=== PATIENT | female | born 1985 | race Caucasian/White ===

== ENCOUNTER 2018-08-28 19:06 | Emergency (ER) | payer MEDICAID ==
[~2018-08-28] VITALS: Ht 149.9 cm; Wt 56.2 kg
[~2018-08-28 19:06] MED LIST: NITR-58 PO
[2018-08-28 19:09] VITALS: Ht 149.9 cm; Wt 56.2 kg
[2018-08-28] MEDS ORDERED: ONDANSETRON 4 MG INJ IV STA (21:34)
[2018-08-28] MEDS ORDERED: SOD CHLORIDE 0.9% 1,000 ML IV STA (21:34)
[2018-08-28] MEDS ORDERED: DOXY1TAB3 PO (22:38)
[2018-08-28 22:45] VITALS: BP 120/65; PULSE 90; RESP 18
--- NOTE | 2018-08-29 01:58 | ERD ---
ER Documentation Chief Complaint Chief Complaint REFFERED BY OB DUE TO PT HAVING KETONES IN URINE? & VOMITING HPI 33-year-old female who is reportedly 10 weeks , Ab2 presenting with complains of intermittent vomiting for the past 2 days. Patient currently has nausea. Patient denies vomiting today. Patient has had decreased appetite overall. She has history of similar symptoms in the past with her other pregnancies. She denies any pelvic pain, vaginal bleeding, vaginal discharge, or other symptoms at this time. Symptoms are overall mild in severity. ROS All systems reviewed and are negative except as per history of present illness. Medications Home Meds Active Scripts Doxylamine/Pyridoxine Hcl (DICLEGIS DR 10-10 MG TABLET) 1 Each Tablet.dr, 1 TAB PO QHS PRN for NAUSEA, #10 TAB Prov:CHRISTIAN AGUSTIN PA-C 08/28/18 Nitrofurantoin Monohyd Macrocr* (Macrobid*) 100 Mg Capsr, 100 MG PO BID for 5 Days, #10 CAP Prov:Tasha Sparks PA-C 06/01/16 Allergies Allergies: Coded Allergies: No Known Allergy (Unverified , 06/08/16) PMhx/Soc Medical and Surgical Hx: pt denies Medical Hx, pt denies Surgical Hx History of Surgery: No Anesthesia Reaction: No Hx Neurological Disorder: No Hx Respiratory Disorders: No Hx Cardiac Disorders: No Hx Psychiatric Problems: No Hx Miscellaneous Medical Probl: No Hx Alcohol Use: No Hx Substance Use: No Hx Tobacco Use: No Smoking Status: Never smoker FmHx Family History: No diabetes Physical Exam Vitals Vital Signs Date Temp Pulse Resp B/P (MAP) Pulse Ox O2 O2 Flow FiO2 Time Delivery Rate 08/28/18 98.1 90 18 120/65 100 Room Air 22:45 (83) 08/28/18 98.2 74 19 131/83 100 19:09 (99) Physical Exam Const: No acute distress Head: Atraumatic Eyes: Normal Conjunctiva ENT: Normal External Ears, Nose and Mouth. Neck: Full range of motion. No meningismus. Resp: Clear to auscultation bilaterally Cardio: Regular rate and rhythm, no murmurs Abd: Soft, non tender, non distended. Normal bowel sounds. No suprapubic tenderness palpation. No rebound tenderness or guarding. No McBurney's point tenderness. Skin: No petechiae or rashes Ext: No cyanosis, or edema Neur: Awake and alert Psych: Normal Mood and Affect Result Diagram: 08/28/18215508/28/182155 Results 24 hrs Laboratory Tests Test 08/28/18 21:56 White Blood Count 9.0 10^3/ul Red Blood Count 3.98 10^6/ul Hemoglobin 12.0 g/dl Hematocrit 36.2 % Mean Corpuscular Volume 91.0 fl Mean Corpuscular Hemoglobin 30.2 pg Mean Corpuscular Hemoglobin Concent 33.1 g/dl Red Cell Distribution Width 12.6 % Platelet Count 287 10^3/UL Mean Platelet Volume 10.1 fl Immature Granulocytes % 0.300 % Neutrophils % 65.2 % Lymphocytes % 27.0 % Monocytes % 6.2 % Eosinophils % 0.9 % Basophils % 0.4 % Nucleated Red Blood Cells % 0.0 /100WBC Immature Granulocytes # 0.030 10^3/ul Neutrophils # 5.9 10^3/ul Lymphocytes # 2.4 10^3/ul Monocytes # 0.6 10^3/ul Eosinophils # 0.1 10^3/ul Basophils # 0.0 10^3/ul Nucleated Red Blood Cells # 0.0 10^3/ul Sodium Level 139 mmol/L Potassium Level 3.7 mmol/L Chloride Level 105 mmol/L Carbon Dioxide Level 25 mmol/L Anion Gap 9 Blood Urea Nitrogen 7 mg/dl Creatinine 0.47 mg/dl Est Glomerular Filtrat Rate mL/min > 60 mL/min Glucose Level 87 mg/dl Calcium Level 9.4 mg/dl Total Bilirubin 0.2 mg/dl Direct Bilirubin 0.00 mg/dl Indirect Bilirubin 0.2 mg/dl Aspartate Amino Transf (AST/SGOT) 15 IU/L Alanine Aminotransferase (ALT/SGPT) 9 IU/L Alkaline Phosphatase 70 IU/L Total Protein 7.6 g/dl Albumin 4.1 g/dl Globulin 3.50 g/dl Albumin/Globulin Ratio 1.17 Current Medications Medications Dose Sig/Kiera Start Time Status Last (Trade) Ordered Route PRN Stop Time Admin Dose Reason Admin Sodium 1,000 ml @ Q1H STAT 08/28/18 DC 08/28/18 Chloride 1,000 mls/hr IV 21:34 08/28/18 21:49 22:33 Ondansetron 4 mg ONCE STAT 08/28/18 DC 08/28/18 HCl (Zofran IV 21:34 08/28/18 21:51 Inj) 21:36 Procedures/MDM 33-year-old female presenting to the emergency department with signs and symptoms most consistent with hyperemesis gravidarum. Low suspicion for ectopic , tubo-ovarian abscess, acute abdomen, sepsis, or other emergencies. Patient was improved significantly after treatment in the department with IV fluids and IV Zofran. She was otherwise stable for discharge and further follow-up with her primary care physician. She agreed with the diagnosis, plan, need for follow-up, return precautions. CBC: no e/o of systemic infection or severe anemia CMP: no e/o severe acidosis, alkalosis, renal failure, diabetic ketoacidosis, liver disease Lipase: no e/o pancreatitis PT/INR: normal coagulation Departure Diagnosis: Primary Impression: Hyperemesis gravidarum Condition: Fair Patient Instructions: Hyperemesis Gravidarum (Severe Morning Sickness) Referrals: [facility] Usted se pickett hecho un examen mdico de control que le indica que no est en mer condicin que requiera tratamiento urgente en el Departamento de Emergencia. Un estudio ms profundo y el tratamiento de mcconnell condicin pueden esperar sin ningn riesgo hasta que usted sea atendida/o en el consultorio de mcconnell mdico o mer clnica. Es responsabilidad suya arreglar mer karena para el seguimiento del kristen. MANEJO DE CONDICIONES NO URGENTES EN EL FUTURO 1) Si usted tiene un mdico de atencin primaria: Usted debera llamar a mcconnell mdico de atencin primaria antes de venir al departamento de emergencia. Despus de las horas de consultorio, mcconnell doctor o mcconnell asociado/a est disponible por telfono. El mdico o enfermero de marcos en el servicio telefnico puede asesorarle por jakob medio para atender el problema, o kristen contrario se puede programar mer karena. 2) Si usted no tiene un mdico de atencin primaria: Llame al mdico o clnica de referencia que aparece abajo estrella las horas de consultorio para hacer mer karena para que le vean. CLINICAS: [place] [phone] [facility] [phone] [facility] [phone] [facility] [phone] [place] [address] [phone] [place] [phone] [employer] [place] [address] [facility] [address] [facility] [place] [phone] OFFICE FAX , [facility] [address] [place], [place] [phone] [facility] [address] [place] [address] [address] HUSAIN [facility] [address] [facility], [facility] [address] [address] [address] [place] [address] [facility] [address] [place] [address] [facility] [place] [address] - [address] [place] [address] [address] BEDOLLA, [facility] [address] [facility] [address], [place] [address] [address] [address] [place] [address] Additional Instructions: Llame al doctor MAANA y tim mer KARENA PARA DENTRO DE 1-2 SCHNEIDER.Dgale a la secr etaria que nosotros le instruimos hacer esta karena.Avise o llame si mcconnell condicin se empeora antes de la karena. Regresa aqui si peor o no mejor. CHRISTIAN AGUSTIN PA-C Aug 29, 2018 01:58
== END 2018-08-28 22:48 | disposition home or self-care (01) ==
LOC: FTE 19:06
DX: O21.0 Mild hyperemesis gravidarum (principal); Z3A.10 10 weeks gestation of pregnancy
CPT/HCPCS: 36415; 80053; 85025; 96374; J2405; J7030; Z7502

== ENCOUNTER 2019-02-22 11:14 | Inpatient (IN) | payer MEDICAID ==
[~2019-02-22] VITALS: Ht 142.2 cm; Wt 63.6 kg
[~2019-02-22 11:14] MED LIST changes: +DOXY1TAB3 PO
[2019-02-22 11:38] VITALS: Ht 142.2 cm; Wt 63.6 kg
[2019-02-22] MEDS ORDERED: LIDOCAINE 1% (MPF) 30 ML INJ INJ PRN (12:00)
[2019-02-22] MEDS ORDERED: MISOPROSTOL 200 MCG TAB PR PRN (12:00)
[2019-02-22] MEDS ORDERED: METHYLERGONOVINE 0.2 MG INJ IM PRN (12:00)
[2019-02-22] MEDS ORDERED: CARBOPROST 250 MCG INJ IM PRN (12:00)
[2019-02-22] MEDS ORDERED: OXYTOCIN 30 UNITS/LR 500 ML IV PRN (12:00)
[2019-02-22] MEDS ORDERED: OXYTOCIN 30 UNITS/LR 500 ML IV SCH ×3 (12:00→12:30)
[2019-02-22] MEDS ORDERED: IBUPROFEN 600 MG TAB PO PRN (12:00)
[2019-02-22] MEDS ORDERED: BUTORPHANOL 2 MG INJ IV PRN (12:00)
[2019-02-22] MEDS: LACTATED RINGER'S 1,000 ML IV SCH ×2 (12:08→15:59)
[2019-02-22] MEDS ORDERED: AMPICILLIN 2 GM/NS (PMX) 100 ML IV ONE (12:30)
[2019-02-22] MEDS ORDERED: MISOPROSTOL 50 MCG CAPSULE VAG ONE (12:30)
[2019-02-22] MEDS ORDERED: hydrALAzine 20 MG INJ IV PRN (18:30)
[2019-02-22] MEDS ORDERED: LABETALOL HCL 20MG INJ IV ONE (18:30)
[2019-02-22] MEDS ORDERED: LABETALOL HCL 20MG INJ IV PRN ×2 (18:30)
[2019-02-22] MEDS: AMPICILLIN 1 GM/NS (PMX) 50 ML IV SCH (19:36)
[2019-02-22] MEDS: MISOPROSTOL 50 MCG CAPSULE PO SCH (20:00)
[2019-02-23] MEDS: AMPICILLIN 1 GM/NS (PMX) 50 ML IV SCH ×6 (00:10→20:02)
[2019-02-23] MEDS: MISOPROSTOL 50 MCG CAPSULE PO SCH ×4 (02:26→20:16)
[2019-02-23] MEDS: LACTATED RINGER'S 1,000 ML IV SCH ×2 (04:04→16:11)
--- NOTE | 2019-02-23 17:22 | HP ---
Date/Time of Note Date/Time of Note DATE: 02/23/19 TIME: 17:19 OB - History Hx of Present Free Text/Dictation 33-year-old 5 para 3 with at 37 weeks and 2 days with due date March 14, 2019. She was seen at outpatient diagnostic center yesterday for NST and showed hyper blood pressure. Dr. Paniagua perinatologist recommended induction of labor. She was started on Cytotec induction of labor. NST is reassuring. Care: Good Care Ultrasounds: No ultrasounds Obstetrical Complications: Gestational Hypertension Medical Complications: None Past Family/Social History * Past Medical, Surgical, Family and Obstetric Histories reviewed from chart. OB Admission Exam Physical Exam HEENT: WNL Heart: Rhythm Normal Lungs: Clear, Equal Abdomen: WNL Extremities: Normal Reflexes: Normal Cervical Dilatation: None Last 72 hours Lab Results CBC & BMP 02/22/19 11:48 02/22/19 12:11 Liver Function Test 02/22/19 11:48 Alanine Aminotransferase (ALT/SGPT) 19 Albumin 3.2 L Alkaline Phosphatase 264 H Aspartate Amino Transf (AST/SGOT) 23 Direct Bilirubin 0.00 Total Protein 6.4 OB Assessment/Plan Other Assessment: Regnancy at 37 weeks and 3 days Gestational hypertension Induction Method: per Misoprostol Protocol SPENSER KIM MD Feb 23, 2019 17:22
[2019-02-23] MEDS ORDERED: LABETALOL HCL 20MG INJ IV ONE (19:35)
[2019-02-24] MEDS: AMPICILLIN 1 GM/NS (PMX) 50 ML IV SCH ×4 (00:01→12:06)
[2019-02-24] MEDS: MISOPROSTOL 50 MCG CAPSULE PO SCH (00:16)
[2019-02-24] MEDS: LACTATED RINGER'S 1,000 ML IV SCH ×3 (03:07→13:28)
[2019-02-24] MEDS ORDERED: LACTATED RINGER'S 1,000 ML IV PRN (06:00)
--- NOTE | 2019-02-24 06:26 | PREAC ---
Date/Time of Note Date/Time of Note DATE: 02/24/19 TIME: 06:23 Anesthesia Eval and Record Evaluation Time Pre-Procedure Interview DATE: 02/24/19 TIME: 06:23 Age 33 Sex female NPO: 8 hrs Preoperative diagnosis IUP Planned procedure L&D Epidural Past Medical History Past Medical History: Includes Cardio: HTN GI: Obesity : : Surgery & Anesthesia Issues No known issue Meds Anticoagulation: No Beta Leonard within 24 hr: No Reason Beta Leonard not given: Pt. not on B-Leonard Active Scripts Doxylamine/Pyridoxine Hcl (RADHA DAVIS 10-10 MG TABLET) 1 Each Tablet., 1 TAB PO QHS PRN for NAUSEA, #10 TAB Prov:CHRISTIAN AGUSTIN PA-C 08/28/18 Nitrofurantoin Monohyd Macrocr* (Macrobid*) 100 Mg Capsr, 100 MG PO BID for 5 Days, #10 CAP Prov:Tasha Sparks PA-C 06/01/16 Current Medications Lactated Ringer's 1,000 ml @ 125 mls/hr Q8H IV Last administered on 02/24/19at 03:07; Admin Dose 125 MLS/HR; Start 02/22/19 at 11:35 Butorphanol Tartrate (Stadol) 2 mg Q2H PRN IV .PAIN SCALE 6-10; Start 02/22/19 at 12:00 Lidocaine (Xylocaine 1% (Mpf)) 30 ml ONCE PRN INJ .EPISIOTOMY; Start 02/22/19 at 12:00 Oxytocin/Lactated Ringer's 500 ml @ 500 mls/hr ONCE POST IV ; Start 02/22/19 at 12:00 Oxytocin/Lactated Ringer's 500 ml @ 125 mls/hr POST IV ; Start 02/22/19 at 12:00 Ibuprofen (Motrin) 600 mg ONCE PRN PO .PAIN 1-5; Start 02/22/19 at 12:00 Oxytocin/Lactated Ringer's 500 ml @ 0 mls/hr ONCE PRN IV .VAGINAL BLEEDING; Start 02/22/19 at 12:00 Methylergonovine Maleate (Methergine) 0.2 mg ONCE PRN IM .VAGINAL BLEEDING; Start 02/22/19 at 12:00 Carboprost Tromethamine (Hemabate) 250 mcg ONCE PRN IM .VAGINAL BLEEDING; Start 02/22/19 at 12:00 Misoprostol (Cytotec) 1,000 mcg ONCE PRN WV .VAGINAL BLEEDING; Start 02/22/19 at 12:00 Ampicillin 50 ml @ 100 mls/hr Q4H IV Last administered on 02/24/19at 04:00; Admin Dose 100 MLS/HR; Start 02/22/19 at 16:30 Oxytocin/Lactated Ringer's 500 ml @ 0 mls/hr FOR INDUCTION IV ; Start 02/22/19 at 12:30 Misoprostol (Cytotec 50 Mcg Capsule) 50 mcg Q4 PO Last administered on 02/24/19at 00:16; Admin Dose 50 MCG; Start 02/22/19 at 20:00 Labetalol HCl (Labetalol) 40 mg ONCE PRN IV ELEVATED BLOOD PRESSURE Last administered on 02/24/19at 05:34; Admin Dose 40 MG; Start 02/22/19 at 18:30 Labetalol HCl (Labetalol) 80 mg ONCE PRN IV ELEVATED BLOOD PRESSURE Last administered on 02/24/19at 05:55; Admin Dose 80 MG; Start 02/22/19 at 18:30 Hydralazine HCl (Apresoline) 10 mg ONCE PRN IV ELEVATED BLOOD PRESSURE; Start 02/22/19 at 18:30 Lactated Ringer's 1,000 ml @ 2,000 mls/hr Q30M PRN IV .ANESTHESIA; Start 02/24/19 at 06:00 Meds reviewed: Yes Allergies Coded Allergies: No Known Allergy (Unverified , 06/08/16) Allergies Reviewed: Yes Labs/Studies Labs Reviewed: Reviewed by anesthesiologist Result Diagram: 02/22/19 1211 02/22/19 1148 test: Positive Studies: ECG Pre-procedure Exam Last vitals BP:148/77, P;76, Spo2:100%, T:98,9 Airway: Adequate mouth opening, Adequate thyromental dist Mallampati: Mallampati II Teeth: Normal Lung: Normal Heart: Normal ASA Physical Status ASA physical status: 2 Emergency: None Planned Anesthetic Neuraxial: Epidural Planned Pain Management Epidural, Parenteral pain med Pre-operative Attestations Prior to commencing anesthesia and surgery, the patient was re-evaluated, there was verification of: *The patient's identity *The results of appropriate recent lab work and preoperative vital signs *The above evaluation not changing prior to induction *Anesthetic plan, risk benefits, alternative and complications discussed with patient/family; questions answered; patient/family understands, accepts and wishes to proceed. MYRNA STALEY MD Feb 24, 2019 06:26
[2019-02-24] MEDS ORDERED: FENTAnyl 2MCG/ML-ROPIV 0.2% 100 ML ONE (06:27)
[2019-02-24] MEDS ORDERED: NALOXONE (0.4 MG/ML) INJ IV PRN (06:30)
[2019-02-24] MEDS ORDERED: FENTAnyl 2MCG/ML-ROPIV 0.2% 100 ML BAG EPI SCH (06:30)
[2019-02-24] MEDS ORDERED: DIPHENHYDRAMINE 50 MG INJ IV PRN ×2 (06:30→17:30)
[2019-02-24] MEDS ORDERED: ONDANSETRON 4 MG INJ IV PRN ×2 (06:30→17:30)
[2019-02-24] MEDS ORDERED: ACETAMINOPHEN 325 MG TAB PO ONE (08:00)
[2019-02-24] MEDS ORDERED: hydrALAzine 20 MG INJ IV ONE (08:00)
[2019-02-24] MEDS ORDERED: OXYTOCIN 30 UNITS/LR 500 ML IV SCH (08:00)
[2019-02-24] MEDS ORDERED: MAGNESIUM SULFATE 4 GM/100 ML 100 ML IVPB ONE ×2 (08:00)
[2019-02-24] MEDS: MAGNESIUM SULFATE 20 GM/500 ML 500 ML IV SCH ×2 (08:31→19:41)
[2019-02-24] MEDS ORDERED: MISOPROSTOL 200 MCG TAB PO ONE (15:30)
--- NOTE | 2019-02-24 16:48 | PN ---
Date/Time of Note Date/Time of Note DATE: 02/24/19 TIME: 16:46 OB Subjective Subjective Subjective Late entry note. Patient seen at 13 :50 patient seen and examined. She states good movement. She denies nausea, vomiting, shortness of breath, chest pain, abdominal pain between contractions, headache, visual changes. OB Objective Objective Objective General: Patient appears well, alert and oriented, NAD, appropriate mood and affect ABD: gravid, soft, non-tender. Back: No CVA tenderness (B/L) LE: Mild edema. No clubbing, cyanosis, edema, thigh or calf tenderness bilaterally FHT: 130 bpm , moderate variability with acceleration, no deceleration-category I Contractions: Q 2-3 minutes SVE: 10/100/0 /ceph/rupture/clear OB Assessment/Plan Other plan: 33 years old 5 para 3-0-1-2 with single intrauterine at 37 weeks and 3 days with gestational hypertension -FHR: Category I -Continuous EFM, toco -Continue current management ROYCE MONTEMAYOR Feb 24, 2019 16:48
--- NOTE | 2019-02-24 16:51 | LDN ---
Date/Time of Note Date/Time of Note DATE: 02/24/19 TIME: 16:49 Delivery Summary 33 years old 5 para 3-0-1-2 with single intrauterine at 37 weeks and 3 days with gestational hypertension delivered a viable female new you over first-degree laceration. Nose and mouth suctioned. Rest of body delivered. Cord clamp and cut. Baby given to the nurse. Placenta delivered spontaneously and intact with three-vessel cord. Laceration repaired with 3-0 chromic with SH needle. Patient tolerated procedure well. Time of delivery 15:06 Weight 5 pounds 11 ounces / 2590 g 9 at 1 minutes and 9 at 5 minutes EBL 250 mL Weeks of Gestation 37 weeks and 3 days Placenta Delivered: Spontaneously Meconium: none Episiotomy: No Estimated blood loss: 250 Sponge & Needle done & correct: Yes All needle counts correct: Yes Any foreign bodies felt in the: No Delivery Information Sex Sex: female Apgars 1 Minute: 9 5 Minute: 9 10 Minute: 10 Suctioning Nose & mouth suctioned at huey: Yes Umbilical Cord Umbilical cord with: 3 Vessels Cord presentations: no nuchal cord Cord Blood was obtained: Yes Mother & Baby Disposition Disposition Mom & Baby to Maternity; Good: Yes ROYCE MONTEMAYOR Feb 24, 2019 16:51
[2019-02-24] MEDS ORDERED: DEXTROSE 5%-LR 1,000 ML IV SCH (17:18)
[2019-02-24] MEDS ORDERED: ACETAMINOPHEN 325 MG TAB PO PRN (17:30)
[2019-02-24] MEDS ORDERED: BENZOCAINE 20% 56 ML SPRAY TOP PRN (17:30)
[2019-02-24] MEDS ORDERED: SENNA/DOCUSATE NA (8.6MG/50MG) TAB PO PRN (17:30)
[2019-02-24] MEDS ORDERED: MISOPROSTOL 200 MCG TAB PR PRN (17:30)
[2019-02-24] MEDS ORDERED: WITCH HAZEL/GLYCERIN PAD PR PRN (17:30)
[2019-02-24] MEDS ORDERED: CARBOPROST 250 MCG INJ IM PRN (17:30)
[2019-02-24] MEDS ORDERED: MAGNESIUM HYDROXIDE 30ML CUP PO PRN (17:30)
[2019-02-24] MEDS ORDERED: OXYCODONE/ASPIRIN (4.88/325) TAB PO PRN (17:30)
[2019-02-24] MEDS ORDERED: OXYTOCIN 30 UNITS/LR 500 ML IV PRN (17:30)
[2019-02-24] MEDS ORDERED: LANOLIN HPA 1 PKT TOP PRN (17:30)
[2019-02-24] MEDS ORDERED: ZOLPIDEM 5 MG TAB PO PRN (17:30)
[2019-02-24] MEDS ORDERED: METHYLERGONOVINE 0.2 MG INJ IM PRN (17:30)
[2019-02-24] MEDS ORDERED: DIBUCAINE 1% 30 GM OINT TOP PRN (17:30)
[2019-02-24] MEDS: IBUPROFEN 600 MG TAB PO SCH (18:52)
[2019-02-24 19:03] VITALS: BP 134/69; PULSE 82; RESP 18
[2019-02-24 19:41] VITALS: BP 141/74; PULSE 82; RESP 18
[2019-02-24] MEDS: LACTATED RINGER'S 1,000 ML IV* SCH (20:21)
[2019-02-24 20:40] VITALS: BP 143/80; PULSE 84; RESP 18
[2019-02-24 21:40] VITALS: BP 144/79; PULSE 84; RESP 18
[2019-02-24 22:40] VITALS: BP 127/79; PULSE 76; RESP 18
[2019-02-24 23:40] VITALS: BP 123/76; PULSE 80; RESP 18
[2019-02-25] VITALS (15 sets, daily range): BP systolic 127–160; BP diastolic 67–87; PULSE 65–78; RESP 16–19
[2019-02-25] MEDS: IBUPROFEN 600 MG TAB PO SCH ×5 (00:02→23:33)
[2019-02-25] MEDS: LACTATED RINGER'S 1,000 ML IV* SCH ×3 (01:18→17:18)
[2019-02-25] MEDS: MAGNESIUM SULFATE 20 GM/500 ML 500 ML IV SCH (06:22)
--- NOTE | 2019-02-25 12:57 | DS ---
Date/Time of Note Date/Time of Note DATE: 02/25/19 TIME: 12:56 Obstetrical Discharge Record Final Diagnosis Final Diagnosis: Term delivered Vaginal Delivery Obstetrical Delivery: Spontaneous Complications Augmentation: Yes Induction: Yes Rupture of Membranes: No Condition on Discharge Physical Assessment Voiding: Yes Bowel Movement: Yes Breast: Soft, non-tender, Filling Fundus: Firm Abdomen and Incision: soft, not tender Calf Tenderness: No Patient Condition: Good SPENSER KIM MD Feb 25, 2019 12:57
[2019-02-25] MEDS: LABETALOL 200 MG TAB PO SCH ×2 (17:37→22:07)
[2019-02-25] MEDS ORDERED: NIFEdipine (XL) 60 MG TAB PO SCH (21:00)
[2019-02-26] VITALS (9 sets, daily range): BP systolic 106–139; BP diastolic 60–74; PULSE 62–83; RESP 16–19
[2019-02-26] MEDS: IBUPROFEN 600 MG TAB PO SCH ×4 (05:45→23:58)
[2019-02-26] MEDS ORDERED: LABETALOL 200 MG TAB PO PRN (07:00)
--- NOTE | 2019-02-26 08:59 | DS ---
Date/Time of Note Date/Time of Note DATE: 02/26/19 TIME: 08:55 Obstetrical Discharge Record Final Diagnosis Final Diagnosis: Term delivered Other Final Diagnosis Patient with preeclampsia was admitted to hospital for induction of labor. She underwent induction and status post of a healthy baby. day 0, she had normal blood pressures. On day # 1 she developed hypertension and was treated with Procardia XL and labetalol. 2 days day #2 her blood pressures have return or normal, but this may be due to effect of Procardia XL. Our plan is failed observation and blood pressure controlled by labetalol. She denies headaches visual changes or right upper quadrant pain. Patient is advised to check her blood pressures 3 times a day for the next 30 days and go to emergency room if she develops blood pressure higher than 150 systolic or more than 100 diastolic. Patient is advised to go to her care clinic and within 1 week for blood pressure check. Patient is also educated on preeclampsia signs and symptoms. Patient is told to go to the emergency room if she develops headaches visual changes or right upper quadrant pain. Vaginal Delivery Obstetrical Delivery: Spontaneous Complications Augmentation: Yes Induction: Yes Condition on Discharge Physical Assessment Voiding: Yes Bowel Movement: Yes Breast: Soft, non-tender, Filling Fundus: Firm Abdomen and Incision: Soft, not tender Calf Tenderness: No Patient Condition: Good SPENSER KIM MD Feb 26, 2019 08:59
[2019-02-26] MEDS ORDERED: DIPHTH/TET/ACEL PERTUSS (ADULT) 0.5 ML VIAL IM* ONE (09:00)
[2019-02-26] MEDS ORDERED: MEASLES,MUMPS,RUBELLA VACCINE INJ SC* ONE (09:00)
[2019-02-27 03:50] VITALS: BP 129/71; PULSE 65; RESP 19
[2019-02-27] MEDS: IBUPROFEN 600 MG TAB PO SCH ×2 (05:40→11:52)
[2019-02-27 08:00] VITALS: BP 127/77; PULSE 62; RESP 20
--- NOTE | 2019-02-27 10:26 | NSTRPT ---
NST Information Datetime Report Generated by CPN: 02/27/2019 10:26 Datetime: 02/22/2019 08:18 NST Information EGA: 37.1 Test Number: 2 Time on Monitor: 02/22/2019 08:50 Time off Monitor: 02/22/2019 09:31 NST Duration (Min): 41 Reason for NST: Previous Demise Reason for NST Other: at 32 weeks Test and Monitor Explained: Monitor Explained; Test Explained; Verbalized Understanding Pulse: 56 Resp: 18 SBP: 146 DBP: 86 Test Evaluation NST Interventions: Reposition Patient Patient States Movement: Present Contraction Frequency: X1(denies) FHR Baseline : 130 Variability: Moderate 6-25bpm Accelerations: 15X15 Decelerations: Early FHR Category: Category I NST Results: Reactive Provider Notified: Fer Paniagua and Anahi Comments: To u/s, RUTHY 15.3, Cephalic additional BP's 143/76 _ 144/77 0935-Report to deena Jaeger BP's. Recommends delivery at this time. Above Report called to deena Whaley Dr Tafti's recommendation. Order to admit to L_D receive d. 0940-POC explained to pt, by Atiya Kendrick, Report called to Allyn RN/Labor _ Delivery Charge Electronically Signed By E-Signature: with User ID: [id number], A ddendum/Amendment: Patient referred for delivery due to increased BPs Datetime: 02/19/2019 14:23 NST Information EGA: 36.5 Datetime: 02/19/2019 14:20 NST Duration (Min): 33
--- NOTE | 2019-02-28 15:46 | DELSUM ---
Delivery Summary A-C Datetime Report Generated by CPN: 02/28/2019 15:46 DELIVERY PERSONNEL Science Faculty Member: Dustin, Claudia MATERNAL INFORMATION Delivery Anesthesia: Epidural Placenta Cultured: No Maternal Complications: Other Other Maternal Complications: HIGH BP LABOR SUMMARY EDC: 03/14/2019 00:00 No. Babies in Womb: 1 Attempted: No Labor Anesthesia: Epidural LABOR INFORMATION Reason for Induction: Gest. HTN/PreEclam/Eclamp Onset of Labor: 02/24/2019 07:04 Complete Dilatation: 02/24/2019 15:00 Cervical Ripening Agents: Cytotec @ 50 Group B Beta Strep: Positive Antibiotics # of Doses: 12 Antibiotics Time of Last Dose: 02/24/2019 12:00 Steroids Given: None Reason Steroids Not Administered: Not Applicable MEMBRANES Membranes Rupture Method: Spontaneous Rupture of Membranes: 02/24/2019 07:04 Length of Rupture (hr): 8.03 Amniotic Fluid Color: Clear Amniotic Fluid Amount: Moderate Amniotic Fluid Odor: None STAGES OF LABOR Stage 1 hr: 7 Stage 1 min: 56 Stage 2 hr: 0 Stage 2 min: 6 Stage 3 hr: 0 Stage 3 min: 5 Total Time in Labor hr: 8 Total Time in Labor min: 7 VAGINAL DELIVERY Episiotomy: None Laceration Extension: First Degree Laceration Type: Vaginal Laceration Repair: Yes Initial Vag Sponge Count: 15 Final Vag Sponge Count: 15 Initial Vag Sharps Count: 1 Final Vag Sharps Count: 2 Sponge Count Correct: Yes Sharps Count Correct: Yes BABY A INFORMATION Infant Delivery Date/Time: 02/24/2019 15:06 Method of Delivery: Vaginal Born in Route : No : N/A Forceps: N/A Vacuum Extraction: N/A Shoulder Dystocia : No SHOULDER DYSTOCIA BABY A Delivery Date/Time: 02/24/2019 15:06 PRESENTATION/POSITION BABY A Presentation: Cephalic Cephalic Presentation: Vertex Breech Presentation: N/A PLACENTA INFORMATION BABY A Placenta Delivery Time : 02/24/2019 15:11 Placenta Method of Delivery: Spontaneous Placenta Status: Delivered SCORES BABY A Heart Rate 1 min: >100 bpm Resp Effort 1 min: Good Cry Reflex Irritability 1 min: Cough/Sneeze/Pulls Away Muscle Tone 1 min: Active Motion Color 1 min: Body [place], Extremit Blue Resuscitation Effort 1 min: Tactile Stimulation SCORE 1 MIN: 9 Heart Rate 5 min: >100 bpm Resp Effort 5 min: Good Cry Reflex Irritability 5 min: Cough/Sneeze/Pulls Away Muscle Tone 5 min: Active Motion Color 5 min: Body [place], Extremit Blue Resuscitation Effort 5 min: Tactile Stimulation SCORE 5 MIN: 9 INFORMATION BABY A Gestational Age at Delivery: 37.3 Gestational Status: Early Term- 37- 38.6 Weeks Infant Outcome : Liveborn, with signs of life Condition : Stable Sex: Female IDENTIFICATION/MEDS BABY A ID Band Number: [id number] ID Band Location: Right Leg; Left Arm Sensor Applied: Yes Sensor Number: [id number] Sensor Location : Cord Clamp Vitamin K Given : Not Given Erythromycin Given: Not Given WEIGHT/LENGTH BABY A Birthweight (gm): 2590 Infant Weight (lb): 5 Infant Weight (oz): 11 Infant Length (in): 18.00 Length (cm): 45.72 CORD INFORMATION BABY A No. Cord Vessels: 3 Nuchal Cord : N/A Cord Blood Taken: Yes Infant Suction: Mouth; Nose ASSESSMENT BABY A Infant Complications: None Physical Findings at Delivery: Within Normal Limits Infant Respirations: Appears Normal Cutting And Printing Machine Operator/ALS Called : No Transferred To: Remains with Mother
== END 2019-02-27 15:45 | disposition home or self-care (01) | DRG 807 ==
LOC: OBT 11:14 → L-D 11:15 → PP1 02-24 17:51
PROVIDERS: ADMIT Specialist; ATTEND Specialist
PROC: 10E0XZZ Delivery of Products of Conception, External Approach (ICD-10-PCS; principal; 2019-02-24)
PROC: 0HQ9XZZ Repair Perineum Skin, External Approach (ICD-10-PCS; 2019-02-24)
DX: O13.4 Gestational [pregnancy-induced] hypertension without significant proteinuria, complicating childbirth (principal); Z37.0 Single live birth; O70.0 First degree perineal laceration during delivery; Z3A.37 37 weeks gestation of pregnancy
CPT/HCPCS: 59025; 62322; 76815; 76816; 80053; 81001; 83735; 84560; 85025; 85610; 85730; 86592; 86850; 86900; 86901; 87340; J0290; J0360; J2405; J2590; J3010; J3475; J7120; J7121